=== PATIENT | female | born 1985 | race Caucasian/White ===

== ENCOUNTER 2016-10-22 15:11 | Emergency (ER) | payer OTHER ==
[~2016-10-22] VITALS: Ht 162.6 cm; Wt 62.9 kg
[~2016-10-22 15:11] MED LIST: ASPIR 8181 M1 PO; Aldomet PO; BYSTOLIC5 MG PO; CELEXA40 MG PO; CLEOCIN300 MG PO; CLONAZEPAM; CLONAZEPAM0.5 MG PO; CYMBALTA30 MG PO; CYMBALTA60 MG PO; Cipro PO; Cymbalta PO; DILAUDID4 MG PO; DULOXETINE HCL60 MG PO; Dilaudid PO; Elavil PO; GABAPENTIN600 MG PO; GRALISE PO; HUMALOG; HUMALOG100 UNIT/1; HUMALOG100 UNIT/1 SC; HUMALOG100 UNITS/ PO; HUMALOG100 UNITS/ SC; HUMALOG100 UNITS/ SQ; KLONOPIN0.5 M1 PO; LANTUS; LANTUS 10100 UNITS/ SC; LANTUS 3 M100 UNITS1 SC; LANTUS100 UNIT/1 SQ; LASIX20 MG PO; LIDODERM 5% P1 PATCH TD; LISINOPRIL10 MG PO; LISINOPRIL20 MG PO; LISINOPRIL40 MG PO; LOPRESSOR50 MG PO; LYRICA75 MG PO; Lopressor PO; METHADONE5 MG; METOPROLOL TART50 MG PO; MIRALAX17 GM PO; MOBIC7.5 MG PO; MORPHINE SULFAT30 M2 PO; MULTIVITAMIN1 EAC2 PO; Macrobid PO; NAPROSYN500 MG PO; NEURONTIN300 MG PO; NEURONTIN600 MG PO; NEURONTIN800 MG PO; NEXIUM20 MG PO; NORMODYNE,TRAN200 MG PO; NOVOLOG PE100 UNITS/ SC; NUCYNTA100 MG PO; Neurontin PO; OMEPRAZOLE40 M1 PO; ONDANSETRON ODT8 MG PO; OXYCODONE HCL10 MG PO; OXYCODONE HCL15 MG PO; OxyCONTIN PO; PRILOSEC20 MG PO; PRINIVIL20 MG PO; PriLOSEC PO; ROXICODONE15 MG PO; SERTRALINE HCL100 MG PO; SKELAXIN800 MG PO; TYLENOL REGULA325 MG PO; Topamax PO; ULTRACET1 TABLET PO; WELLBUTRIN100 M1 PO; ZESTRIL,PRINIVI20 MG PO; ZESTRIL10 MG PO; ZESTRIL20 MG PO; ZOFRAN ODT4 MG PO; ZOFRAN ODT8 MG PO; ZOFRAN4 MG PO; ZOLOFT100 MG PO; Zestril,Prinivil PO
[2016-10-22 15:48] LABS: POINT-OF-CARE METER ID UU13113778
[2016-10-22] MEDS ORDERED: AMOXICILLIN500 MG PO (17:52)
[2016-10-22 18:06] VITALS: BP 158/98
== END 2016-10-22 18:07 | disposition home or self-care (01) ==
LOC: EME 15:11 → EXP 15:11
DX: H66.92 Otitis media, unspecified, left ear (principal)
CPT/HCPCS: 82948; 99281; 99283

== ENCOUNTER 2017-01-12 10:43 | Emergency (ER) | payer OTHER ==
[~2017-01-12] VITALS: Ht 162.6 cm; Wt 68.8 kg
[~2017-01-12 10:43] MED LIST changes: +AMOXICILLIN500 MG PO
[2017-01-12 11:49] LABS: MCH 29.1 PG (29.0-34.0); MCHC 33.1 G/DL (30.0-36.0); MCV 87.8 FL (83-99); MEAN PLAT.VOLUME 10.8 uM^3 (9.5-12.4); PLATELET COUNT 321 K/uL (156-360); RBC DIS.WIDTH-CV 16.1 % (11.8-14.6); RBC DIS.WIDTH-SD 52.2 % (39-53); RED BLOOD COUNT 4.44 M/uL (3.80-5.20); WHITE BLOOD COUNT 9.7 K/uL (4.1-10.2)
[2017-01-12 11:57] LABS: CHLORIDE 104 mEq/L (99-109); POTASSIUM 4.2 mEq/L (3.7-5.4); SODIUM 136 mEq/L (136-147)
[2017-01-12 11:58] LABS: GLUCOSE 113 mg/dL (70-99)
[2017-01-12 12:00] LABS: ANION GAP 12 MEQ/L (2-14); D-DIMER ELISA 0.19 mg/L FEU (< 0.57)
[2017-01-12 12:02] LABS: GFR ESTIMATE (CALCULATED) 46 mL/min/
[2017-01-12 12:03] LABS: UREA NITROGEN (BUN) 31 mg/dL (9-23)
[2017-01-12 13:21] LABS: ADD MIUA? YES; BILIRUBIN NEGATIVE; BLOOD NEGATIVE; COLOR YELLOW ((YELLOW)); GLUCOSE (STRIP) >=500; KETONES NEGATIVE; LEUKOCYTES NEGATIVE; NITRITE NEGATIVE; PROTEIN (STRIP) 100; SPECIFIC GRAVITY 1.011 (1.000-1.030); UROBILINOGEN 0.2 MG/DL (0.2-1.0)
[2017-01-12 13:30] LABS: BACTERIA RARE /HPF; EPITHELIAL CELLS RARE /HPF; HYALINE CASTS 0-5 /LPF; MUCUS TRACE /LPF; RED BLOOD CELLS NONE SEEN /HPF (0-5); WHITE BLOOD CELLS 0-5 /HPF (0-5)
[2017-01-12 13:31] LABS: AMPHETAMINE PRESUMPTIVE POSITIVE (500 ng/mL); BARBITURATES NEGATIVE (200 ng/mL); BENZODIAZEPINES NEGATIVE (150 ng/mL); COCAINE NEGATIVE (150 ng/mL); INTERNAL CONTROLS VALID? YES; METHADONE NEGATIVE (200 ng/mL); METHAMPHETAMINE NEGATIVE (500 ng/mL); OPIATES (MORPHINE) PRESUMPTIVE POSITIVE (100 ng/mL); OXYCODONE PRESUMPTIVE POSITIVE (100 ng/mL); PHENCYCLIDINE NEGATIVE (25 ng/mL); PROPOXYPHENE NEGATIVE (300 ng/mL); THC CANNABINOIDS NEGATIVE (50 ng/mL); TRICYCLIC ANTIDEPRESSANTS NEGATIVE (300 ng/mL)
[2017-01-12 13:32] LABS: ADD MEDTOX COMMENT Y
[2017-01-12] MEDS ORDERED: DOXYCYCLINE HY100 MG PO (13:49)
[2017-01-12 14:13] VITALS: BP 129/79
[2017-01-14 11:47] LABS: POINT-OF-CARE METER ID UU14100415
== END 2017-01-12 14:14 | disposition home or self-care (01) ==
LOC: EME 10:43
PROVIDERS: Emergency Medicine
DX: R60.9 Edema, unspecified (principal); G89.29 Other chronic pain; I11.0 Hypertensive heart disease with heart failure; I50.9 Heart failure, unspecified; M79.7 Fibromyalgia; E78.5 Hyperlipidemia, unspecified; Z79.4 Long term (current) use of insulin; E11.40 Type 2 diabetes mellitus with diabetic neuropathy, unspecified; E11.319 Type 2 diabetes mellitus with unspecified diabetic retinopathy without macular edema; G43.909 Migraine, unspecified, not intractable, without status migrainosus; F41.9 Anxiety disorder, unspecified; F17.200 Nicotine dependence, unspecified, uncomplicated
CPT/HCPCS: 80048; 81003; 82948; 84999; 85027; 85379; 99281; 99284

== ENCOUNTER 2017-03-29 06:11 | Emergency (ER) | payer OTHER ==
[~2017-03-29] VITALS: Ht 162.6 cm; Wt 68.4 kg
[~2017-03-29 06:11] MED LIST changes: +DOXYCYCLINE HY100 MG PO
[2017-03-29] MEDS ORDERED: MOTRIN600 MG PO (09:00)
[2017-03-29 09:09] VITALS: BP 178/88
== END 2017-03-29 09:18 | disposition home or self-care (01) ==
LOC: EME 06:11
DX: S92.355A Nondisplaced fracture of fifth metatarsal bone, left foot, initial encounter for closed fracture (principal); X50.1XXA Overexertion from prolonged static or awkward postures, initial encounter; Y93.02 Activity, running; E11.40 Type 2 diabetes mellitus with diabetic neuropathy, unspecified
CPT/HCPCS: 73610; 73630; 99281; 99284

== ENCOUNTER 2017-05-25 16:18 | Emergency (ER) | payer OTHER ==
[~2017-05-25] VITALS: Ht 162.6 cm; Wt 70.0 kg
[~2017-05-25 16:18] MED LIST changes: +MOTRIN600 MG PO
[2017-05-25 16:44] LABS: HEMATOCRIT 43.1 % (36.0-46.0); MCH 28.5 PG (29.0-34.0); MCHC 32.7 G/DL (30.0-36.0); MCV 87.2 FL (83-99); MEAN PLAT.VOLUME 10.6 uM^3 (9.5-12.4); PLATELET COUNT 331 K/uL (156-360); RBC DIS.WIDTH-CV 13.1 % (11.8-14.6); RBC DIS.WIDTH-SD 42.1 % (39-53); RED BLOOD COUNT 4.94 M/uL (3.80-5.20); WHITE BLOOD COUNT 8.8 K/uL (4.1-10.2)
[2017-05-25 16:51] LABS: POINT-OF-CARE METER ID UU13113747
[2017-05-25 16:56] LABS: CHLORIDE 103 mEq/L (99-109); POTASSIUM 4.1 mEq/L (3.7-5.4); SODIUM 137 mEq/L (136-147)
[2017-05-25 16:58] LABS: GLUCOSE 60 mg/dL (70-99)
[2017-05-25 16:59] LABS: ANION GAP 10 MEQ/L (2-14)
[2017-05-25 17:02] LABS: GFR ESTIMATE (CALCULATED) 46 mL/min/; UREA NITROGEN (BUN) 19 mg/dL (9-23)
[2017-05-25 17:06] LABS: TROP-I INTERPRETATION NEGATIVE; TROPONIN-I < 0.01 ng/mL (0.0-0.30)
[2017-05-25 17:10] LABS: QUANTITATIVE HCG < 4.0 MIU/ML
[2017-05-25 17:48] LABS: POINT-OF-CARE METER ID UU13113747
[2017-05-25 18:32] LABS: POINT-OF-CARE METER ID UU13113747
[2017-05-25 21:26] VITALS: BP 142/104
== END 2017-05-25 21:55 | disposition home or self-care (01) ==
LOC: EME → EDBD 16:18 → EME 21:55
PROVIDERS: Emergency Medicine
DX: R53.1 Weakness (principal); E11.9 Type 2 diabetes mellitus without complications; G62.9 Polyneuropathy, unspecified; R07.89 Other chest pain; I44.7 Left bundle-branch block, unspecified; Z79.4 Long term (current) use of insulin; I10 Essential (primary) hypertension; Z86.73 Personal history of transient ischemic attack (TIA), and cerebral infarction without residual deficits; F17.200 Nicotine dependence, unspecified, uncomplicated
CPT/HCPCS: 71010; 80048; 82948; 84484; 84702; 85027; 93005; 99281; 99285; J7030

== ENCOUNTER 2017-08-03 19:49 | Emergency (ER) | payer OTHER ==
[~2017-08-03] VITALS: Ht 162.6 cm; Wt 68.6 kg
[2017-08-03] MEDS ORDERED: ZITHROMAX Z-PA250 MG PO (22:24)
[2017-08-03] MEDS ORDERED: ATARAX,VISTARIL50 MG PO (22:40)
[2017-08-03 23:02] VITALS: BP 193/105
== END 2017-08-03 23:03 | disposition home or self-care (01) ==
LOC: EME 19:49
DX: J40 Bronchitis, not specified as acute or chronic (principal); J04.0 Acute laryngitis; F17.200 Nicotine dependence, unspecified, uncomplicated; I11.0 Hypertensive heart disease with heart failure; I50.9 Heart failure, unspecified; E11.9 Type 2 diabetes mellitus without complications; Z79.4 Long term (current) use of insulin; E78.5 Hyperlipidemia, unspecified; M79.7 Fibromyalgia; F41.9 Anxiety disorder, unspecified; Z86.73 Personal history of transient ischemic attack (TIA), and cerebral infarction without residual deficits
CPT/HCPCS: 71020; 94640; 99281; 99284; J7512; Q0177

== ENCOUNTER 2017-08-06 07:46 | Emergency (ER) | payer OTHER ==
[~2017-08-06] VITALS: Ht 162.6 cm; Wt 64.4 kg
[~2017-08-06 07:46] MED LIST changes: +ATARAX,VISTARIL50 MG PO; +ZITHROMAX Z-PA250 MG PO
[2017-08-06] MEDS ORDERED: XYLOCAINE VISC100 ML PO (09:19)
[2017-08-06 09:33] VITALS: BP 127/64
== END 2017-08-06 09:36 | disposition home or self-care (01) ==
LOC: EME 07:46
DX: R13.10 Dysphagia, unspecified (principal); F17.200 Nicotine dependence, unspecified, uncomplicated; E11.8 Type 2 diabetes mellitus with unspecified complications; I11.0 Hypertensive heart disease with heart failure; I50.9 Heart failure, unspecified; Z79.4 Long term (current) use of insulin; E78.5 Hyperlipidemia, unspecified; M79.7 Fibromyalgia; F41.9 Anxiety disorder, unspecified; Z86.73 Personal history of transient ischemic attack (TIA), and cerebral infarction without residual deficits
CPT/HCPCS: 70360; 99281; 99284

== ENCOUNTER 2018-03-10 09:51 | Inpatient (IN) | payer OTHER ==
[~2018-03-10] VITALS: Ht 162.6 cm; Wt 70.4 kg
[~2018-03-10 09:51] MED LIST changes: +LYRICA150 MG PO; -LYRICA75 MG PO; +XYLOCAINE VISC100 ML PO
[2018-03-10 10:30] LABS: HEMOGLOBIN 13.9 G/DL (11.9-15.5); MCH 31.4 PG (29.0-34.0); MCHC 33.9 G/DL (30.0-36.0); MCV 92.6 FL (83-99); PLATELET COUNT 314 K/uL (156-360); RBC DIS.WIDTH-CV 14.9 % (11.8-14.6); RBC DIS.WIDTH-SD 50.4 % (39-53); RED BLOOD COUNT 4.43 M/uL (3.80-5.20)
[2018-03-10 10:40] LABS: CHLORIDE 99 mEq/L (99-109); POTASSIUM 4.8 mEq/L (3.7-5.4); SODIUM 135 mEq/L (136-147)
[2018-03-10 10:41] LABS: GLUCOSE 395 mg/dL (70-99)
[2018-03-10 10:45] LABS: CREATININE 1.4 mg/dL (0.6-1.3); GFR ESTIMATE (CALCULATED) 46 mL/min/
[2018-03-10 10:46] LABS: UREA NITROGEN (BUN) 21 mg/dL (9-23)
[2018-03-10 10:50] LABS: TROP-I INTERPRETATION NEGATIVE; TROPONIN-I 0.02 ng/mL (0.0-0.30)
[2018-03-10] MEDS ORDERED: TYLENOL REGULA325 MG PO (15:52)
[2018-03-10] MEDS ORDERED: ADVAIR 250/501 DISK IH (15:53)
[2018-03-10] MEDS ORDERED: LOPRESSOR50 MG PO (15:53)
[2018-03-10] MEDS ORDERED: MELATONIN3 MG PO (15:53)
[2018-03-10] MEDS ORDERED: MAGNESIUM27 MG PO (15:53)
[2018-03-10] MEDS ORDERED: ONCE DAILY1 EACH PO (15:54)
[2018-03-10] MEDS ORDERED: LEVAQUIN500 MG PO (16:40)
[2018-03-10 16:52] VITALS: BP 137/97
== END 2018-03-10 16:52 | disposition left against medical advice (07) | DRG 195 ==
LOC: EME 09:51 → EDOF 13:52 → ENRESERV 13:54 → CANRESERV 13:54 → ENRESERV 15:17 → EDOF 16:52
PROVIDERS: Internal Medicine
DX: J18.9 Pneumonia, unspecified organism (principal); R00.0 Tachycardia, unspecified; E10.319 Type 1 diabetes mellitus with unspecified diabetic retinopathy without macular edema; E10.43 Type 1 diabetes mellitus with diabetic autonomic (poly)neuropathy; K31.84 Gastroparesis; E78.5 Hyperlipidemia, unspecified; I11.0 Hypertensive heart disease with heart failure; I50.9 Heart failure, unspecified; I44.7 Left bundle-branch block, unspecified; M79.7 Fibromyalgia; F17.200 Nicotine dependence, unspecified, uncomplicated; Z86.73 Personal history of transient ischemic attack (TIA), and cerebral infarction without residual deficits; Z79.4 Long term (current) use of insulin; Z53.29 Procedure and treatment not carried out because of patient's decision for other reasons
CPT/HCPCS: 71046; 80048; 82948; 83605; 83880; 84484; 85027; 87040; 93005; 94640; 99202; 99281; 99285; J0456; J0696; J7030